=== PATIENT | male | born 1995 | race Two or more races ===

== ENCOUNTER 2017-12-11 23:08 | Emergency (ER) | payer OTHER ==
[2017-12-12] MEDS: MECLIZINE 12.5 MG TAB PO (03:17)
[2017-12-12] MEDS: ACETAMINOPHEN 325 MG TAB PO (03:18)
[2017-12-12] MEDS: ONDANSETRON (ODT) 4 MG TAB ODT (03:18)
== END 2017-12-12 04:11 | disposition home or self-care (01) ==
LOC: FTE 23:08
DX: R42 Dizziness and giddiness (principal); R51 Headache; R11.0 Nausea
CPT/HCPCS: 99283; Z7502